=== PATIENT | male | born 1995 | race Caucasian/White ===

== ENCOUNTER 2023-02-06 15:03 | Emergency (ER) | payer BC, SELFPAY ==
[2023-02-06] VITALS (11 sets, daily range): BP systolic 107–137; BP diastolic 54–79; PULSE 48–71; RESP 15–24; TEMP 36.6–36.8; O2SAT 98–100; BMI 32.5
--- NOTE | 2023-02-06 15:32 | ED.HA ---
HPI - Headache General Chief Complaint: Headache Stated Complaint: Tick bite t-7, Nausea, Headache Time Seen by Provider: 02/06/23 15:28 Mode of arrival: Ambulatory History of Present Illness HPI Narrative: 27-year-old male nonsmoker with noncontributory medical history presents with a chief complaint of a severe relatively sudden onset headache that started a few hours ago. It was quite intense at its onset and he states that he was cooking some richter when it happened. He states that at its most intense it was a 9/10 and associated with nausea and vomiting. He states that it is made worse by bright lights and loud noise. He denies any recent trauma or injury, he has no neck pain or fever. Denies chest pain or shortness of breath. He denies history of headaches. He has no neurologic symptoms such as blurred vision, trouble speech, dizziness, weakness or lightheadedness. He denies extremity numbness, tingling or weakness Related Data Previous Rx's Medication Instructions Recorded ondansetron 4 mg disintegrating 4 mg PO TID-QID PRN nausea and 02/06/23 tablet vomiting #10 tabs Allergies Allergy/AdvReac Type Severity Reaction Status Date / Time No Known Drug Allergies Allergy Verified 02/06/23 15:16 Review of Systems Review of Systems Narrative: GENERAL: Denies chills, fatigue, malaise, fever, sweats. HEENT: Denies sinus pain, ear pain, sore throat, difficulty swallowing, dizziness. RESPIRATORY: Denies dyspnea, cough, wheezing, hemoptysis, sputum. CARDIOVASCULAR: Denies chest pain, palpitations, orthopnea, edema, GASTROINTESTINAL: Denies nausea, vomiting, abdominal pain, diarrhea, constipation, melena. : Denies dysuria, frequency, incontinence, hematuria, urinary retention. MUSCULOSKELETAL: denies weakness, joint pain, or bony pain SKIN: Denies rash, skin lesions, or other NEUROLOGIC: See HPI PSYCHIATRIC: No concerning psychosocial issues. 12 point review of systems is negative except for those stated above Patient History Social History Smoking Status: Never smoker Exam Narrative Exam Narrative: GENERAL: [27] year old patient appears stated age. Well-developed patient, in mild distress. GCS 15 HEAD: Atraumatic. Normocephalic. EYES: Pupils equal round and reactive. Extraocular motions intact. No scleral icterus. No injection or drainage. ENT: Nose without bleeding, purulent drainage. Throat without erythema, tonsillar hypertrophy or exudate. Airway patent. NECK: Trachea midline. Non tender no meningeal sign CARDIOVASCULAR: Regular rate and rhythm without murmurs, gallops, or rubs. RESPIRATORY: Clear to auscultation. Breath sounds equal bilaterally. No wheezes, rales, or rhonchi. GASTROINTESTINAL: Abdomen soft, non-tender, nondistended. EXTREMITIES: No edema or joint tenderness. BACK: Nontender without deformity or crepitance. No flank tenderness. NEURO: AOx3. SKIN: No rash or erythema of visible areas NIH Stroke Scale 1a. LOC: Patient is alert and keenly responsive (0) 1b. LOC Questions: Patient answers both LOC questions accurately (0) 1c. LOC Commands: Patient performs both tasks correctly (0) 2. Best Gaze: Normal (0) 3. Visual: No visual loss (0) 4. Facial palsy: Normal symmetrical movements (0) 5. Motor arm: No drift (0) 6. Motor leg: No drift (0) 7. Limb ataxia: Absent (0) 8. Sensory: Normal (0) 9. Best language: No aphasia; normal (0) 10. Dysarthria: Normal (0) 11. Extinction and inattention: No abnormality (0) NIHSS: 0 Initial Vital Signs Initial Vital Signs: Vital Signs Temperature 98.2 F 02/06/23 15:12 Pulse Rate 56 L 02/06/23 15:12 Respiratory Rate 18 02/06/23 15:12 Blood Pressure 133/73 02/06/23 15:12 Pulse Oximetry 100 02/06/23 15:12 Oxygen Delivery Method Room Air 02/06/23 15:12 Course Orders Ordered: Discontinued Medications Diphenhydramine HCl (Diphenhydramine 50 Mg/Ml Vial) 25 mg IV NOW ONE Stop: 02/06/23 16:16 Last Admin: 02/06/23 16:38 Dose: 25 mg Documented By: LELIA Sodium Chloride (Normal Saline 0.9%) 1,000 mls @ 1,000 mls/hr IV BOLUS ONE Stop: 02/06/23 17:12 Last Infusion: 02/06/23 16:56 Dose: 0 mls/hr Documented By: Admin: 02/06/23 16:16 Dose: 1,000 mls/hr Documented By: LELIA Sodium Chloride (Normal Saline 0.9%) 1,000 mls @ 1,000 mls/hr IV BOLUS ONE Stop: 02/06/23 17:14 Last Infusion: 02/06/23 18:09 Dose: 0 mls/hr Documented By: Admin: 02/06/23 16:40 Dose: 1,000 mls/hr Documented By: LELIA Ketorolac Tromethamine (Ketorolac 30 Mg/Ml Vial) 15 mg IV NOW ONE Stop: 02/06/23 17:16 Last Admin: 02/06/23 18:09 Dose: 15 mg Documented By: LELIA Metoclopramide HCl (Metoclopramide 10 Mg/2 Ml Inj) 10 mg IV NOW ONE Stop: 02/06/23 17:17 Last Admin: 02/06/23 18:08 Dose: 10 mg Documented By: LELIA Ondansetron HCl (Ondansetron 4 Mg Odt Prepack) 1 bottle MISC SEEINSTR ONE Stop: 02/06/23 17:55 Last Admin: 02/06/23 18:09 Dose: 1 bottle Documented By: LELIA Vital Signs Vital signs: Vital Signs - 8 hr 02/06/23 15:12 02/06/23 15:33 02/06/23 15:34 Temperature 98.2 F Pulse Rate 56 L 60 Respiratory Rate 18 Blood Pressure 133/73 123/68 Pulse Oximetry 100 100 Oxygen Delivery Method Room Air Room Air 02/06/23 15:34 02/06/23 16:00 02/06/23 16:00 Temperature Pulse Rate 56 L 61 Respiratory Rate 18 Blood Pressure 137/79 Pulse Oximetry 99 99 Oxygen Delivery Method MDM - Headache Lab Data 02/06/23 16:03 02/06/23 16:03 Labs: Lab Results 02/06/23 02/06/23 Range/Units 16:03 16:03 WBC 13.0 H (4.5-11.0) X10^3/uL RBC 5.28 (4.5-5.9) X10^6/uL Hgb 16.1 (13.5-17.5) g/dL Hct 46.5 (41-53) % MCV 88.0 (80-100) fL MCH 30.5 (26-34) PG MCHC 34.7 (30-36) % RDW 12.7 (11.6-14.8) % Plt Count 253 (150-400) X10^3/uL Neut % (Auto) 78.2 H (50-75) % Lymph % (Auto) 16.4 L (25-40) % [place] % (Auto) 4.8 (3-14) % Eos % (Auto) 0.2 L (2-4) % Baso % (Auto) 0.4 (0-2) % Neut # (Auto) 60002 H (0614-9743) /uL Lymph # (Auto) 2100 (4831-8993) /uL [place] # (Auto) 600 (0-900) /uL Eos # (Auto) 0 (0-450) /uL Baso # (Auto) 100 (0-100) /uL Sodium 138 (137-145) mmol/L Potassium 4.2 (3.4-5.1) mmol/L Chloride 100 (98-107) mmol/L Carbon Dioxide 29 (22-32) mmol/L BUN 13 (9-20) mg/dL Creatinine 1.06 (0.66-1.25) mg/dL Estimated GFR > 60 (>60) mL/min BUN/Creatinine Ratio 12.3 (6-22) Glucose 115 H (70-100) mg/dL Calcium 9.2 (8.4-10.2) mg/dL Point of Care Testing Glucose POC 115 MDM Narrative Medical decision making narrative: [27] year old patient presents with severe headache history from patient Headache considerations include, but not limited to: Subarachnoid hemorrhage, but unlikely as patient denies sudden onset of pain, not worst of life, or neck pain Meningitis considered, but thought unlikely given lack of Brudzinski's, Kernig's sign, altered mental status or fever Giant cell arteritis considered, but thought unlikely given lack of unilateral findings, pain in episcopal, vision change HTN Emergency considered, but thought unlikely given normal vitals Other serious diagnoses considered unlikely given lack of red flag findings such as sudden onset, increasing frequency, immunocompromise, systemic signs (fever, chills, stiff neck, or rash), focal neurologic findings, trauma, blood thinners, etc Primary Historian: patient Labs reviewed and interpreted by myself: No significant abnormal findings Imaging reviewed: Head CT unremarkable Patient's symptoms improved over duration of stay with above-stated therapies. Findings and discharge diagnosis discussed with patient/family followed by verbalization of understanding Return precautions discussed with patient/family whom verbalize understanding of diagnosis and plan. Discharge Plan Departure Patient Disposition: Home Clinical Impression: Headache Instructions: DI for Headache Activity Restrictions/Additional Instructions: *You have been diagnosed with [ Headache ] as we discussed your history and physical exam as well as labs and CT scan are reassuring. *What to do: *Take medications as directed *Follow up with your primary care provider in 2-3 days, call for an appointment. Let them know you were seen in the Emergency Department and that we ask that you be seen in follow up *Return to ER if you should have any new, worsening or concerning symptoms, such as [ fever > 101F, neck pain or stiffness, vomiting, confusion, seizure, focal weakness, vision change, speech deficit or other concerning symptoms ] . Prescriptions: New ondansetron 4 mg tablet,disintegrating 4 mg PO TID-QID PRN (Reason: nausea and vomiting) Qty: 10 0RF Stand Alone Forms: Patient Portal/API
[2023-02-06] MEDS: ONDANSETRON 4 MG/2 ML INJ (16:16)
[2023-02-06] MEDS: SODIUM CHLORIDE 0.9% 1,000 ML 1000 ML IV ×2 (16:16→16:40)
--- NOTE | 2023-02-06 16:19 | DI.CT.S_ITS ---
PROCEDURE: CT HEAD/BRAIN WO CON INDICATIONS: sudden severe headache TECHNIQUE: Noncontrast 4.5 mm thick angled axial sections acquired from the foramen magnum to the vertex, with coronal and sagittal reformats. For radiation dose reduction, the following was used: automated exposure control, adjustment of mA and/or kV according to patient size. COMPARISON: None. FINDINGS: Image quality: Excellent. CSF spaces: Basal cisterns are patent. No extra-axial fluid collections. Ventricles are normal in size and shape. Brain: No midline shift. No intracranial masses or hemorrhage. Carter-white matter interface is normal. Skull and face: Calvarium and visualized facial bones are intact, without suspicious lesions. Sinuses: Visualized sinuses and mastoids are clear. IMPRESSION: CT head without acute intracranial abnormalities. No mass or mass effect visualized. Dictated by: Marc Terrell M.D. on 02/06/2023 at 16:36 Approved by: Marc Terrell M.D. on 02/06/2023 at 16:36
[2023-02-06 16:28] LABS: Add Manual Diff / Slide Review NO; Basophils Absolute Auto 100 /uL (0-100); Basophils Percent Auto 0.4 % (0-2); Eosinophils Absolute Auto 0 /uL (0-450); Eosinophils Percent Auto 0.2 % (2-4); Hematocrit 46.5 % (41-53); Hemoglobin 16.1 g/dL (13.5-17.5); Lymphocytes Absolute Auto 2100 /uL (1100-4500); Lymphocytes Percent Auto 16.4 % (25-40); Mean Corpuscular HGB Conc 34.7 % (30-36); Mean Corpuscular Hemoglobin 30.5 PG (26-34); Monocytes Absolute Auto 600 /uL (0-900); Monocytes Percent Auto 4.8 % (3-14); Neutrophils Absolute Auto 10200 /uL (1500-7000); Neutrophils Percent Auto 78.2 % (50-75); Platelet Count 253 X10^3/uL (150-400); Red Blood Cell Count 5.28 X10^6/uL (4.5-5.9); Red Cell Distribution Width 12.7 % (11.6-14.8)
[2023-02-06 16:32] LABS: BUN Creatinine Ratio 12.3 (6-22); Blood Urea Nitrogen 13 mg/dL (9-20); Calcium 9.2 mg/dL (8.4-10.2); Carbon Dioxide 29 mmol/L (22-32); Chloride 100 mmol/L (98-107); Estimated Glomerular Filt Rate > 60 mL/min (>60); Glucose 115 mg/dL (70-100); HEMOLYSIS 21 (0-50); Potassium 4.2 mmol/L (3.4-5.1); Sodium 138 mmol/L (137-145)
[2023-02-06] MEDS: diphenhydrAMINE 50 MG/ML VIAL 25 MG IV (16:38)
[2023-02-06] MEDS: METOCLOPRAMIDE 10 MG/2 ML INJ IV (18:08)
[2023-02-06] MEDS: KETOROLAC 30 MG/ML VIAL 15 MG IV (18:09)
[2023-02-06] MEDS: ONDANSETRON 4 MG ODT PREPACK 1 BOTTLE MISC (18:09)
== END 2023-02-06 18:43 | disposition home or self-care (01) ==
PROVIDERS: Emergency Provider Emergency Medicine
DX: R51.9 Headache, unspecified (principal); R11.2 Nausea with vomiting, unspecified
CPT/HCPCS: 36415; 70450; 80048; 82962; 85025; 96374; 96375; 99284; J1200; J1885; J2405; J2765